=== PATIENT | male | born 1935 | race Caucasian/White ===

== ENCOUNTER 2023-05-12 09:23 | Emergency (ER) | payer MEDICARE ==
[~2023-05-12] VITALS: Ht 177.8 cm; Wt 81.1 kg
[2023-05-12 10:05] LABS: Urine Epithelial Cast None Seen /hpf (<5)
[2023-05-12 10:09] LABS: Basophils # (auto) 0 10 ^3/uL (0-0.2); Basophils % (auto) 0.6 % (0.0-2.0); Eosinophils # (auto) 0.1 10 ^3/uL (0-0.8); Eosinophils % (auto) 0.8 % (0.0-7.0); Hematocrit 43.9 % (41.0-53.0); Hemoglobin 14.8 g/dL (13.5-17.5); Lymphocytes # (auto) 1.1 10 ^3/uL (0.4-5.4); Lymphocytes % (auto) 14.6 % (10.0-50.0); Mean Corpuscular Hemoglobin 33.8 pg (28.0-32.0); Mean Corpuscular Hgb Conc. 33.7 g/dL (32.0-36.0); Mean Corpuscular Volume 100.3 fL (80.0-100.0); Monocytes # (auto) 0.5 10 ^3/uL (0-1.3); Monocytes % (auto) 7.3 % (0.0-12.0); Neutrophils # (auto) 5.7 10 ^3/uL (1.6-8.6); Neutrophils % (auto) 76.7 % (37.0-80.0); Red Blood Cells 4.38 10^6/uL (4.5-5.90); Red Cell Distribution Width 13.3 % (11.8-14.3); White Blood Cell 7.5 10^3/uL (4.4-10.8)
[2023-05-12 10:19] LABS: Urine Bacteria FEW /hpf (None Seen); Urine Blood Negative /uL (Negative); Urine Clarity HAZY (Clear); Urine Color Yellow (Yellow); Urine Mucus FEW (None Seen); Urine Protein, UAD TRACE (Negative); Urine Specific Gravity 1.016 (1.001-1.035); Urine Urobilinogen Normal (Negative); Urine WBC 181 /hpf (0 - 3)
[2023-05-12 10:23] LABS: INR 1.09 (0.9-1.15); Partial Thromboplastin Time 28.5 SEC (24.5-34.5); Prothrombin Time 11.4 sec (9.3-11.8)
[2023-05-12 10:33] LABS: Alanine Aminotransferase 19 U/L (7-40); Alkaline Phosphatase 75 U/L (46-116); Anion Gap 5 (5-15); Calcium 9.7 mg/dL (8.5-10.1); Carbon Dioxide 26 mmol/L (20-30); Chloride 107 mmol/L (98-107); Glucose 113 mg/dL (74-106); Potassium 4.7 mmol/L (3.5-5.1); Sodium 138 mmol/L (136-145)
[2023-05-12 10:34] LABS: Albumin 4.4 g/dL (3.2-4.8); Aspartate Aminotransferase 19 U/L (13-40); Bilirubin, Total 0.8 mg/dL (0.2-1.0); Total Protein 6.9 g/dL (5.7-8.2)
[2023-05-12] MEDS ORDERED: BACDST PO (10:50)
[2023-05-12] MEDS ORDERED: cefTRIAXone SOD 1,000 MG VL IM ONE (11:00)
[2023-05-12 11:07] VITALS: BP 136/65; TEMP 97.4
[2023-05-12 11:08] VITALS: PULSE 73; RESP 18; O2SAT 97
[2023-05-12 11:35] LABS: BUN/Creatinine Ratio 19.8 (10.0-20.0); Blood Urea Nitrogen 17 mg/dL (9-23)
== END 2023-05-12 11:29 | disposition home or self-care (01) ==
LOC: ER 09:23
DX: N39.0 Urinary tract infection, site not specified (principal)
CPT/HCPCS: 36415; 80053; 81001; 85025; 85610; 85730; 96372; 99283; J0696

== ENCOUNTER 2023-08-04 12:18 | Emergency (ER) | payer MEDICARE ==
[~2023-08-04] VITALS: Ht 172.7 cm; Wt 85.2 kg
[~2023-08-04 12:18] MED LIST changes: -ACET500T58 PO
[2023-08-04 13:15] LABS: Urine Bacteria FEW /hpf (None Seen); Urine Blood 1+ /uL (Negative); Urine Clarity Turbid (Clear); Urine Color Dark-Yellow (Yellow); Urine Mucus FEW (None Seen); Urine Protein, UAD 1+ (Negative); Urine Specific Gravity 1.012 (1.001-1.035); Urine Urobilinogen Normal (Negative); Urine WBC 534 /hpf (0 - 3)
[2023-08-04] MEDS: HYDROcodone-ACET 10/325MG TAB PO ONE (18:55)
[2023-08-04 18:56] VITALS: BP 131/62; PULSE 90; RESP 15; TEMP 97.8; O2SAT 96
[2023-08-04 19:01] LABS: Urine Bacteria FEW /hpf (None Seen); Urine Blood TRACE /uL (Negative); Urine Clarity Turbid (Clear); Urine Color Dark-Yellow (Yellow); Urine Mucus FEW (None Seen); Urine Protein, UAD TRACE (Negative); Urine Specific Gravity 1.013 (1.001-1.035); Urine Urobilinogen Normal (Negative); Urine WBC 168 /hpf (0 - 3); Urine pH 5.5 (5.0-9.0)
[2023-08-04] MEDS ORDERED: ACET500T58 PO (19:51)
[2023-08-04] MEDS: levoFLOXacin 250 MG TAB PO ONE (20:11)
== END 2023-08-04 20:21 | disposition home or self-care (01) ==
LOC: ER 12:18
DX: R33.9 Retention of urine, unspecified (principal); N39.0 Urinary tract infection, site not specified; Z79.899 Other long term (current) drug therapy
CPT/HCPCS: 51702; 81001

== ENCOUNTER → 2023-08-04 | Outpatient (CLI) | payer MEDICARE ==
[~2023-08-04] MED LIST: ACET500T58 PO; BACDST PO
== END | disposition home or self-care (01) ==
LOC: LAB 06:25
PROVIDERS: ATTEND Anesthesiology
DX: N39.0 Urinary tract infection, site not specified (principal)
CPT/HCPCS: 87086; 87088; 87186

== ENCOUNTER 2023-08-06 08:55 | Emergency (ER) | payer MEDICARE ==
[~2023-08-06] VITALS: Ht 172.7 cm; Wt 79.0 kg
[~2023-08-06 08:55] MED LIST changes: +ACET500T58 PO
[2023-08-06 15:53] VITALS: BP 134/87; PULSE 77; RESP 18; TEMP 98.4; O2SAT 97
== END 2023-08-06 15:52 | disposition home or self-care (01) ==
LOC: ER 08:55
DX: N39.0 Urinary tract infection, site not specified (principal); Z46.6 Encounter for fitting and adjustment of urinary device